=== PATIENT | male | born 1950 | race Caucasian/White ===

== ENCOUNTER 2017-07-10 10:31 | Outpatient (CLI) | payer OTHER ==
[~2017-07-10 10:31] MED LIST: BARIUM SULFATE 135 ML SUSP.RECON (E-Z-HD) PO ONE
== END 2017-07-10 20:13 | disposition home or self-care (01) ==
LOC: SRD 10:31
PROVIDERS: ATTEND Otolaryngology
DX: R13.10 Dysphagia, unspecified (principal)
CPT/HCPCS: 74220-TC

== ENCOUNTER 2017-07-16 10:46 | Outpatient (CLI) | payer OTHER ==
[2017-07-16] MEDS ORDERED: BARIUM SULFATE 135 ML SUSP.RECON (E-Z-HD) PO ONE (11:07)
== END 2017-07-16 21:01 | disposition home or self-care (01) ==
LOC: SRD 10:46
PROVIDERS: ATTEND Otolaryngology
DX: R47.02 Dysphasia (principal)
CPT/HCPCS: 74230; 92611-GN